=== PATIENT | female | born 1965 | race Caucasian/White ===

== ENCOUNTER 2021-02-09 11:21 | Outpatient (CLI) | payer MEDICARE, MEDICAID, SELFPAY ==
[2021-02-09 18:53] LABS: Basophils Percent Auto 0.5 % (0.2-1.2); Eosinophils Absolute Auto 0.1 K/mm3 (0-0.3); Eosinophils Percent Auto 1.9 % (0-4.4); Hematocrit 43.1 % (37.0-47.0); Hemoglobin 14.2 g/dL (12.0-15.0); Immature Granulocyte Absolute 0.01 K/mm3 (0.00-0.031); Immature Granulocyte Percent A 0.2 % (0-0.5); Lymphocytes Absolute Auto 1.39 K/mm3 (0.9-3.2); Lymphocytes Percent Auto 32.8 % (18.3-44.2); Mean Corpuscular HGB Conc 32.9 g/dl (32-36); Mean Corpuscular Hemoglobin 29.7 pg (26-34); Mean Corpuscular Volume 90.2 fl (80-100); Mean Platelet Volume 9.8 fl (7.4-10.4); Monocytes Absolute Auto 0.3 K/mm3 (0.1-0.6); Monocytes Percent Auto 7.5 % (2.6-8.5); Neutrophils Absolute Auto 2.4 K/mm3 (1.3-6.7); Neutrophils Percent Auto 57.1 % (45.5-73.1); Platelet Count Result 273 k/mm3 (150-375); Red Blood Count 4.78 M/mm3 (4.2-5.4); Red Cell Distribution Width 12.4 % (11.5-14.5); White Blood Count 4.2 K/mm3 (4.5-10.0)
[2021-02-09 18:59] LABS: Alanine Aminotransferase 28 U/L (4-35); Albumin Level 4.6 g/dL (3.5-5.1); Alkaline Phosphatase 79 U/L (38-126); Anion Gap 9 mmol/L (8-16); Aspartate Amino Transferase 33 U/L (14-36); Bilirubin,Total 0.4 mg/dL (0.2-1.3); Blood Urea Nitrogen 19 mg/dL (7-17); CRP 3.2 mg/dL (<1.0); Calcium 9.8 mg/dL (8.4-10.2); Carbon Dioxide 23 mmol/L (22-30); Chloride 106 mmol/L (98-107); Cholesterol 213 mg/dL (0-200); Estimated Glomerular Filt Rate 57; Glucose 105 mg/dL (65-105); HDL Direct 47 mg/dL; Potassium 4.5 mmol/L (3.4-5.0); Sodium 138 mmol/L (137-145); Triglycerides 201 mg/dL (<150)
[2021-02-09 19:00] LABS: Add Urine Microscopic? YES; Appearance Urine Cloudy (Clear); Bacteria Urine Trace /hpf; Bilirubin Urine Negative (Negative); Blood Urine 1+ (Negative); Calcium Oxalate Crystals Urine Present /hpf; Color Urine Yellow (Yellow); Glucose Urine UA Negative (Negative); Ketones Urine Negative (Negative); Leukocyte Esterase Ur Negative LEU/UL (Negative); Mucus Urine Rare /lpf; Nitrate Urine Negative (Negative); Protein Urine 1+ mg/dL (Negative); Specific Grav Ur 1.023 (1.001-1.035); Squamous Epithelial Cell Urine Many /hpf (Few); Urobilinogen Urine Negative mg/dL (<2.0); WBC Urine 0-3 /hpf
[2021-02-09 19:07] LABS: LDL Cholesterol Direct 69 mg/dL
[2021-02-09 19:17] LABS: Vitamin D 25 Hydroxy 30.9 ng/mL
[2021-02-09 20:02] LABS: Folic Acid 9.8 ng/mL (2.76->20)
[2021-02-14 11:21] LABS: T3 Reverse 19 ng/dL (8-25)
[2021-02-16 18:50] LABS: Triiodothyronine T3 Free 2.7 pg/mL (2.3-4.2)
[2021-02-16 22:33] LABS: C-Peptide 3.16 ng/mL (0.80-3.85)
== END 2021-02-09 11:22 | disposition home or self-care (01) ==
PROVIDERS: PCP Family Medicine; Visit Provider Family Medicine
DX: F32.9 Major depressive disorder, single episode, unspecified (principal); M19.90 Unspecified osteoarthritis, unspecified site; R53.83 Other fatigue; R68.89 Other general symptoms and signs; Z13.9 Encounter for screening, unspecified; Z79.899 Other long term (current) drug therapy; Z82.62 Family history of osteoporosis; G25.81 Restless legs syndrome
CPT/HCPCS: 36415; 80053; 80061; 81001; 82306; 82607; 82746; 84439; 84443; 84481; 84482; 84681; 85025; 86140

== ENCOUNTER 2021-04-02 12:29 | Outpatient (CLI) | payer MEDICARE, MEDICAID, SELFPAY ==
--- NOTE | ~2021-04-02 | CT_ITS ---
EXAMINATION: CT abdomen pelvis wo/w con DATE: 04/02/2021 13:31 INDICATION: Gross hematuria TECHNIQUE: Computed tomography (CT) of the abdomen and pelvis was performed without and subsequently with 130 cc Omnipaque 350 intravenous contrast. Automated exposure control and iterative reconstructi on technique were employed. Exam dose: 3163.45 mGy-cm total exam DLP. COMPARISON: 02/24/2016 CT abdomen pelvis FINDINGS: The lung bases are clear of infiltrate or consolidation. Normal heart size. No pericardial or pleural effusion. The liver, spleen, gallbladder, bile ducts, pancreas, pancreatic duct and adrenal glands are unremark able. At least several calculi noted in the lower pole of each kidney, measuring up to 6 mm approximate max imal size on the right, 5 mm on the left. No ureteral calculus or hydroureteronephrosis. Approximately 4.5 mm upper pole left renal cyst. 9 mm hypoattenuating lesion at the anteromedial mid left kidney. 1.4 cm hypoattenuating lesion in the lower pole of the left kidney. No filling defect or focal thickening of the wall of the urinary bladder is evident. Status post hysterectomy. Normal caliber of the abdominal aorta. No intraperitoneal or retroperitoneal or pelvic mass lesion or adenopathy or ascites. Normal appendix. No bowel obstruction, bowel wall thickening, pneumatosis or intraperitoneal free air . Small fat-containing umbilical hernia. Bilateral L5 pars interarticularis defects with grade 1 anterolisthesis at L5-S1. No suspicious osteolytic or osteoblastic lesions are noted. IMPRESSION: Bilateral nonobstructive nephrolithiasis Indeterminate 4.5 and 9 mm hypoattenuation lesions of the left kidney. Considering the history of timi ss hematuria, consider MRI of the kidneys Status post hysterectomy Bilateral L5 pars interarticularis defects with associated grade 1 anterolisthesis at L5-S1 Reviewed, dictated and finalized at Location A. Reviewed, dictated and finalized at location B. IMPRESSION: Bilateral nonobstructive nephrolithiasis Indeterminate 4.5 and 9 mm hypoattenuation lesions of the left kidney. Consider ing the history of gross hematuria, consider MRI of the kidneys Status post hysterectomy Bilateral L5 pars interarticularis defects with associated grade 1 anterolisthe sis at L5-S1
--- NOTE | ~2021-04-02 | XR_ITS ---
EXAMINATION: XR abdomen/kub 1V INDICATION: Gross hematuria TECHNIQUE: Supine views of the abdomen were obtained on 2 radiographs. COMPARISON: CT from today FINDINGS: There is a 6 mm stone in the lower pole of the right kidney. A 5 mm stone is present in the lower pole of the left kidney. No stones are identified along the expected course of the ureters or within the bladder. There are phleboliths in the pelvis. The bowel gas pattern is normal. Changes of hernia repair are noted in the right upper quadrant. There is mild osteoarthritis of the hips. IMPRESSION: 1. Bilateral nephrolithiasis. Reviewed, dictated and finalized at location A.
== END 2021-04-02 12:30 | disposition home or self-care (01) ==
PROVIDERS: PCP Family Medicine; Visit Provider Nurse Practitioner Family
DX: R31.0 Gross hematuria (principal); N20.0 Calculus of kidney
CPT/HCPCS: 74018; 74178; Q9967

== ENCOUNTER 2021-05-06 15:00 | Outpatient (CLI) | payer MEDICARE, MEDICAID, SELFPAY ==
--- NOTE | ~2021-05-06 | XR_ITS ---
XR shoulder LT min 2V 05/06/2021 15:48 INDICATION: Left shoulder pain PROCEDURE: 4 views left shoulder COMPARISON: No prior studies for comparison. FINDINGS: Fracture, dislocation or subluxation is not identified. The soft tissues appear within norm al limits. No foreign bodies are identified. IMPRESSION: 1: NO ACUTE BONE OR JOINT ABNORMALITY IDENTIFIED. Reviewed, dictated and finalized at location B.
--- NOTE | ~2021-05-06 | XR_ITS ---
EXAMINATION: XR lumbar spine 6V w bending DATE: 05/06/2021 15:48 INDICATION: Low back pain. TECHNIQUE: 7 views of lumbar spine including flexion and extension views were obtained. COMPARISON: CT abdomen and pelvis 04/02/2021 FINDINGS: There is 7 degrees levocurvature of lumbar spine. There are chronic bilateral L5 pars defec ts. There is 5 mm anterolisthesis of L5 on S1. Vertebral body heights are normal. Intervertebral disc heights are normal. There are endplate osteophytes at most levels. There is no abnormal motion with flexion or extension. There is multilevel mild facet joint osteoarthritis. IMPRESSION: 1. Chronic bilateral L5 pars defects with grade 1 anterolisthesis of L5 on S1. 2. Mild lumbar spondylosis. Reviewed, dictated and finalized at location A.
--- NOTE | ~2021-05-06 | XR_ITS ---
EXAMINATION: XR hip RT min 3V w AP pelvis DATE: 05/06/2021 15:47 INDICATION: Right hip pain. TECHNIQUE: An anteroposterior view of the pelvis and 2 views of right hip were obtained. COMPARISON: Right hip radiographs 01/16/2019 CT abdomen and pelvis 04/02/2021 FINDINGS: Bone alignment is normal. No fracture. There is mild osteoarthritis of the hips. IMPRESSION: 1. Mild osteoarthritis of the hips. Reviewed, dictated and finalized at location A.
--- NOTE | ~2021-05-06 | XR_ITS ---
EXAMINATION: XR_CERV2-3V_CR DATE: 05/06/2021 15:48 INDICATION: Neck pain. Fall. TECHNIQUE: 4 views of cervical spine were obtained. COMPARISON: CT cervical spine 01/16/2019 FINDINGS: There is 4 degrees levocurvature of cervical spine. Body heights are normal. There is mildl y decreased disc height at C4-C5, C5-C6, and C6-C7. There is multilevel facet joint osteoarthritis, s evere on the left at C3-C4. No central canal stenosis or prevertebral soft tissue swelling. IMPRESSION: 1. Mild cervical spondylosis. Reviewed, dictated and finalized at location A.
== END 2021-05-06 15:01 | disposition home or self-care (01) ==
LOC: ANHBWCIMG 15:03
PROVIDERS: PCP Family Medicine; Visit Provider Family Medicine
DX: M25.512 Pain in left shoulder (principal); G40.909 Epilepsy, unspecified, not intractable, without status epilepticus; M47.896 Other spondylosis, lumbar region; M16.11 Unilateral primary osteoarthritis, right hip; M47.892 Other spondylosis, cervical region
CPT/HCPCS: 72040; 72114; 73030; 73502

== ENCOUNTER 2021-05-09 10:19 | Outpatient (CLI) | payer MEDICARE, MEDICAID, SELFPAY ==
--- NOTE | ~2021-05-09 | XR_ITS ---
XR abdomen/kub 1V 05/09/2021 10:56 Indication: Bilateral kidney stones Procedure: KUB Comparison: 04/02/2021 Findings: There are small bilateral renal stones. There are pelvic phleboliths. No acute osseous abno rmality. There are changes of ventral abdominal wall hernia repair. No acute osseous abnormality. Impression: 1: Bilateral nephrolithiasis. Reviewed, dictated and finalized at location A. Impression: 1: Bilateral nephrolithiasis.
--- NOTE | ~2021-05-09 | MR_ITS ---
EXAMINATION: MR abdomen wo/w con DATE: 05/09/2021 12:01 INDICATION: Left kidney mass. TECHNIQUE: Magnetic resonance imaging (MRI) of the abdomen was performed without and with 20 mL Multi Cassandra intravenous contrast. Sequences included coronal T2-weighted FS FSE, coronal and axial FIESTA F S, coronal LAVA-flex, axial LAVA, axial T2-weighted FSE, axial T1-weighted dual-echo FSPGR, axial STI R FSE, and axial DWI. Postcontrast sequences included coronal LAVA-flex and a time course of axial LA VA. COMPARISON: CT abdomen and pelvis 04/02/2021 FINDINGS: There is diffuse hepatic steatosis. The gallbladder is normal in size and contains gallstones. Incomp lete pancreas divisum is noted. There is a 5 mm cyst in the spleen. The adrenal glands and right kidn ey are normal. There are cysts in left kidney measuring up to 17 mm. There are no dilated loops of gordo wel. There are no pathologically enlarged lymph nodes. There is no free intraperitoneal fluid. IMPRESSION: 1. Benign cysts in left kidney measuring up to 17 mm. Reviewed, dictated and finalized at location A.
[2021-05-09 11:27] LABS: Estimated Glomerular Filt Rate 57
== END 2021-05-09 10:20 | disposition home or self-care (01) ==
LOC: ANHIMG 10:33
PROVIDERS: PCP Family Medicine; Visit Provider Urology
DX: N28.89 Other specified disorders of kidney and ureter (principal); N20.0 Calculus of kidney; N28.1 Cyst of kidney, acquired
CPT/HCPCS: 74018; 74183; A9577

== ENCOUNTER 2021-07-05 14:54 | Outpatient (CLI) | payer MEDICARE, MEDICAID, SELFPAY ==
--- NOTE | ~2021-07-05 | XR_ITS ---
XR abdomen/kub 1V DATE: 07/05/2021 15:18 INDICATION: Bilateral kidney stones TECHNIQUE: AP projection, 2 views COMPARISON: 05/09/[address] abdomen pelvis without and with IV contrast material FINDINGS: Bilateral lower pole calcified renal calculi are noted, not significantly changed since 03/14. No ureteral calcified calculus is evident. Stable occasional pelvic calcified phlebolith. The psoas shadows are intact. No visceromegaly. No evidence of bowel obstruction. Status post ventral abdominal wall surgical repair. IMPRESSION: Bilateral calcified nephrolithiasis involving lower poles of each kidney Reviewed, dictated and finalized at Location A. Reviewed, dictated and finalized at location A. IMPRESSION: Bilateral calcified nephrolithiasis involving lower poles of each k idney
== END 2021-07-05 14:55 | disposition home or self-care (01) ==
LOC: ANHIMG 14:58
PROVIDERS: PCP Family Medicine; Visit Provider Urology
DX: N20.0 Calculus of kidney (principal)
CPT/HCPCS: 74018

== ENCOUNTER 2021-09-28 12:47 | Outpatient (CLI) | payer MEDICARE, MEDICAID, SELFPAY ==
--- NOTE | 2021-09-28 13:15 | ECG_ITS ---
Measurements Intervals [place] Rate: 92 P: 31 DC: 184 QRS: 18 QRSD: 92 T: 53 QT: 335 QTc: 416 Interpretive Statements SINUS RHYTHM DELAYED PRECORDIAL R/S TRANSITION BASELINE ARTIFACT- I, II, III, AVR, AVL, AVF BORDERLINE ECG Electronically Signed On 09-28-2021 13:07:09 SPOOL CARRIER by Zander Navarro D.O.
== END 2021-09-28 12:48 | disposition home or self-care (01) ==
LOC: ANHSURGERY 12:55
PROVIDERS: PCP Physician Assistant; Visit Provider Urology
DX: F17.200 Nicotine dependence, unspecified, uncomplicated (principal); Z01.818 Encounter for other preprocedural examination; R94.31 Abnormal electrocardiogram [ECG] [EKG]
CPT/HCPCS: 93005

== ENCOUNTER 2021-10-01 01:14 | Day surgery (SDC) | payer MEDICARE, MEDICAID, SELFPAY ==
[2021-09-28 09:58] VITALS: BMI 48.8
--- NOTE | 2021-09-28 11:01 | PC.NURSE ---
Report to the Outpatient Waiting Room, entrance under the green pavilion located off [facility], at time _1000__on date _10/01/21_ OR Time: _1200____. WE WILL CALL YOU ON MONDAY AFTERNOON IF YOUR SURGERY TIME IN CHANGED!!!!!!!!!!!!!!!!! - You and your visitor will be asked a series of questions to screen for COVID 19 for your protection. - A mask is required within the hospital. - Only one visitor is allowed at this time. Patient visitors will be guided where to wait when not with patient. Preoperative COVID Testing Requirements: No COVID Test needed if: (proof is required; if not received patient will have Rapid Test prior to entry) - Patient has received COVID Vaccine at least 14 days prior to procedure date or - Patient has positive COVID test result within last 90 days of surgery date. COVID Test needed if above criteria is not met If not COVID vaccinated a COVID test must be conducted within 72 hours of surgery and patient is asked to isolate self from time of testing until procedure. You will go to the [employer] [facility] for your COVID testing. The [employer] [facility] is located at the corner of [address] [facility]. You will only be called if COVID results are positive and your surgeon may reschedule your elective surgery date. Patients may have clear liquids (water, carbonated beverages, clear teas, apple juice) until 3 hours prior to surgery with a maximum of 20 ounces. STOP CLEAR LIQUIDS AT 0900 ON THE MORNING OF YOUR SURGERY - No food from midnight until time of surgery - Infants may have breast milk until 4 hours before surgery, formula 6 hours prior to surgery. - Children will be allowed to drink immediately following surgery. If applicable, please bring a bottle or sippy cup to assist with drinking. Juice, water, soda, and popsicles are readily available. For infants on formula, please bring formula the day of surgery. Pacifiers are allowed. Take the following medications with a SIP of water the morning of surgery: LIOTHYROXINE, ALBUTEROL INHALER, HYDROCODONE, WIXELA INHALER, CITALOPRAM, TOPIRAMATE, LAMICTAL Medications to discontinue per physician VITAMIN B12 AND VITAMIN D3 Date to take last dose_09/28/21 Please no make-up, nail amharic, hairspray, perfume, deodorant, or body powder the day of surgery. No jewelry (including any body piercings) or valuables the day of surgery, leave them at home. Please take a shower or bath the night before, or the morning of, surgery with an antibacterial soap. Wear comfortable, loose fitting clothing. Children are encouraged to wear pajamas. - Jewelry must be removed prior to entering the operating room. Rings and piercings that are not removed may be cut off. - The hospital will not accept responsibility for valuables. - Please leave all valuables, including medications, at home the day of surgery. If you are going home after surgery, a licensed personal driver must drive you home. - NO public transportation without another adult. - We recommend that an adult stay with you for 24 hours following discharge. - We also recommend that you do not drive, make important decision, drink alcoholic beverages, or take any drugs that were not prescribed by your health care provider for at least 24 hours after your discharge time. For Pediatric surgeries, we recommend two adults accompany the child home (only one inside the building at this time). Follow any additional instructions given to you from your surgeon. Telephone instructions given to __CATHRYN and asked if any additional questions and then verbalized understanding. Patient advised to call surgeon office or pre surgery nurse liaison [phone] if any additional questions.
--- NOTE | ~2021-10-01 | XR_ITS ---
EXAMINATION: XR retrograde pyelogram LT EXAM DATE: 10/01/2021 11:14 INDICATION: Left-sided retrograde pyelogram. TECHNIQUE: Fluoroscopy used during XR retrograde pyelogram LT performed by Dr. Manav Quiroga MD , urologist. The radiologist Juan Moreno M.D. dictating this report of the image(s) available was no t present for the procedure. Total fluoroscopic time of 43 seconds. The DAP for this procedure was 2.0 mGym2. A total of 87 images sent to PACS from the exam. Cine run(s) available for review. FINDINGS: There is mild left hydronephrosis. No filling defects or strictures identified. Correlate with procedure note. IMPRESSION: Mild left hydronephrosis. Reviewed, dictated and finalized at location B. HICS COORDINATOR IMPRESSION: Mild left hydronephrosis.
--- NOTE | 2021-10-01 07:20 | P.HP_ITS ---
H&P: HPI History of Present Illness Date/Time: 10/01/21 07:20 Left distal ureteral stone Chief Complaint: Left ureteral stone Review of Systems Review of Systems: All systems reviewed & are unremarkable except as noted in HPI and below [facility] Past Medical History Medical History Anxiety Arthritis Asthma Brain aneurysm Cancer H/O migraine Seizure Ventral hernia Surgical History Surgical History H/O lumpectomy H/O: hysterectomy Family History Family History Father Family history of lung cancer Family history of primary malignant neoplasm of liver Heart problem Asthma Mother Family history of sleep apnea Family history of type 2 diabetes mellitus Hypertension Heart problem Depression with anxiety Sibling Diabetes mellitus Hypertension Depression with anxiety Heart problem Thyroid disorder Cerebrovascular accident Kidney failure Social History Social History Smoking packs per day: 2 Smoking cigarettes per day: 40.0 Years smoked: 30 Smoking pack-years: 60.00 Smoking status: Current every day smoker Tobacco type: cigarettes and e-cigarettes/vaping Second hand tobacco smoke exposure: Yes Alcohol intake: never Substance use: never Living arrangements: with family Additional living arrangements comments: LAURITA [phone] Spiritual care concerns: No Meds Home Medications and Allergies Home Medications Medication Instructions Recorded Confirmed Type albuterol sulfate 90 mcg/actuation 2 inh INHALATION Q4H PRN g 02/09/21 09/28/21 History aerosol inhaler cholecalciferol (vitamin D3) 50 50 mcg PO DAILY 02/09/21 09/28/21 History mcg (2,000 unit) capsule citalopram 20 mg tablet 20 mg PO DAILY 02/09/21 09/28/21 History cyanocobalamin (vitamin B-12) 1,000 mcg PO DAILY 02/09/21 09/28/21 History 1,000 mcg capsule topiramate 200 mg tablet 200 mg PO BID 02/09/21 09/28/21 History liothyronine 5 mcg tablet 5 mcg PO DAILY #60 tablet 06/04/21 09/28/21 Rx tramadol 50 mg tablet 50 mg PO Q8H PRN #90 tablet 09/21/21 09/28/21 Rx fluticasone propion-salmeterol 1 inh INHALATION BID 09/28/21 09/28/21 History [Wixela Inhub] hydrocodone-acetaminophen 1 - 2 tablet PO Q4-6H PRN 09/28/21 09/28/21 History lamotrigine 100 mg PO DAILY 09/28/21 09/28/21 History oxybutynin chloride 10 mg PO HS 09/28/21 09/28/21 History trazodone 50 mg PO HS 09/28/21 09/28/21 History Allergies Allergy/AdvReac Type Severity Reaction Status Date / Time codeine Allergy Unknown Hives Verified 09/28/21 10:38 Sulfa (Sulfonamide Allergy Unknown Hives Verified 09/28/21 10:38 Antibiotics) Exam Narrative: No acute distress Normal breathing Alert oriented x3 Assessment and Plan Assessment and plan (1) Left ureteral stone: Code(s): N20.1 - Calculus of ureter Status: Acute Assessment and Plan: Left ureteroscopy, stone extraction, stent placement. May require holmium laser ablation
--- NOTE | 2021-10-01 08:21 | WPDHPUPDATE1 ---
History and Physical Update Update Date/Time: 10/01/21 08:21 History and Physical has been reviewed, including an updated exam of the patient. There are NO changes in the patient's condition. Risks, benefits, and alternatives have been discussed and questions answered. Patient agrees to proceed with procedure.
[2021-10-01 09:50] VITALS: BP 143/91; PULSE 87; RESP 16; TEMP 36.3; O2SAT 98
[2021-10-01] MEDS: LACTATED RINGERS 1,000 ML 30 ML IV CONT (10:14)
--- NOTE | 2021-10-01 10:17 | WPDANESEPPF ---
Anes - Initial Pre Proc Eval Procedure: Operation Date: 10/01/21 12:45 Proposed Procedures p Cystoscopy, Left Ureteroscopy, Left Retrograde Pyelogram, Left Stent Placement - Manav Quiroga MD Date/Time: 10/01/21 10:17 Surgeon: Manav Quiroga MD Pre Op Diagnosis: Left Ureteral Stone Patient Data Age: 56 Gender: F Height: 1.6 m Weight: 124 kg Last Vital Signs Temp 36.3 C L 10/01/21 09:50 Pulse 87 10/01/21 09:50 Resp 16 10/01/21 09:50 BP 143/91 H 10/01/21 09:50 Pulse Ox 98 10/01/21 09:50 Allergies Allergy/AdvReac Type Severity Reaction Status Date / Time Sulfa (Sulfonamide Allergy Severe Swelling Verified 10/01/21 10:02 Antibiotics) codeine Allergy Intermediate Hives Verified 10/01/21 10:02 Home Medications Medication Instructions Recorded Confirmed Type albuterol sulfate 90 mcg/actuation 2 inh INHALATION Q4H PRN g 02/09/21 10/01/21 History aerosol inhaler cholecalciferol (vitamin D3) 50 50 mcg PO DAILY 02/09/21 10/01/21 History mcg (2,000 unit) capsule citalopram 20 mg tablet 20 mg PO DAILY 02/09/21 10/01/21 History cyanocobalamin (vitamin B-12) 1,000 mcg PO DAILY 02/09/21 10/01/21 History 1,000 mcg capsule topiramate 200 mg tablet 200 mg PO BID 02/09/21 10/01/21 History liothyronine 5 mcg tablet 5 mcg PO DAILY #60 tablet 06/04/21 10/01/21 Rx tramadol 50 mg tablet 50 mg PO Q8H PRN #90 tablet 09/21/21 10/01/21 Rx fluticasone propion-salmeterol 1 inh INHALATION BID 09/28/21 10/01/21 History [Wixela Inhub] hydrocodone-acetaminophen 1 - 2 tablet PO Q4-6H PRN 09/28/21 10/01/21 History lamotrigine 100 mg PO DAILY 09/28/21 10/01/21 History oxybutynin chloride 10 mg PO HS 09/28/21 10/01/21 History trazodone 50 mg PO HS 09/28/21 10/01/21 History Patient hx anesthesia problems: none Family hx anesthesia problems: none Results Review: All pre-operative results and documents have been reviewed as part of the pre-operative evaluation. [facility] Past Medical History Medical History (Updated 10/01/21 @ 08:21 by Manav Quiroga MD) Anxiety Arthritis Asthma Brain aneurysm Cancer H/O migraine Seizure Ventral hernia Surgical History Surgical History (Updated 10/01/21 @ 10:22 by Xander Mcdonald MD) H/O lumpectomy H/O: hysterectomy Hx of craniotomy Family History Family History Father Family history of lung cancer Family history of primary malignant neoplasm of liver Heart problem Asthma Mother Family history of sleep apnea Family history of type 2 diabetes mellitus Hypertension Heart problem Depression with anxiety Sibling Diabetes mellitus Hypertension Depression with anxiety Heart problem Thyroid disorder Cerebrovascular accident Kidney failure Social History Social History Smoking packs per day: 2 Smoking cigarettes per day: 40.0 Years smoked: 30 Smoking pack-years: 60.00 Smoking status: Current every day smoker Tobacco type: cigarettes and e-cigarettes/vaping Second hand tobacco smoke exposure: Yes Alcohol intake: never Substance use: never Living arrangements: with family Additional living arrangements comments: LAURITA IRBYZKBZ-[phone] Spiritual care concerns: No Anes - Eval Final PreProcedure Day of Procedure 10/01/21 10:17 Patient weight: morbidly obese Heart: regular rate and rhythm Lungs: clear to auscultation Airway: Mallampati scale class II Neurological: alert and oriented Last oral intake: >/= 8 hours ASA classification: IV Emergent: no Anesthetic plan: proceed Anesthesia type and monitoring: general LMA and standard monitoring Results Review: All pre-operative results and documents have been reviewed as part of the pre-operative evaluation. Informed Consent: The patient's anesthetic plan and its attendant risks and benefits were discussed with the patient/family/POADeandre Rivera
[2021-10-01] MEDS: ceFAZolin 3 GM/D5W 100 ML 100 ML IVPB (10:42)
--- NOTE | 2021-10-01 11:15 | W.PM.PROC2 ---
Procedure Note - Detailed Date of Procedure 10/01/21 Pre-op Diagnosis Left Ureteral Stone Post-op Diagnosis same Procedure Performed Cystoscopy, left retrograde pyelogram, left ureteroscopy-diagnostic Surgeon Manav Quiroga MD Anesthesia general Indications This is a woman who had a CT scan 1 week ago demonstrating a left ureteral stone. She states she did not pass the stone. She states she still has discomfort from the stone. She is here today for ureteroscopy. She understands risks of bleeding, infection, inability remove the stone, non presence of stone, damage to the ureter or urinary tract. She agrees to proceed Findings Was able to get the ureteral scope all the way up to the UPJ. No stone seen Description of Procedure She has correctly identified. Informed consent obtained. She from the operating room. She was given general anesthesia. She was placed in dorsal thigh position. She was prepped and draped in a sterile fashion. Time-out performed. I performed cystoscopy. Her bladder is examined normal. I did a retrograde pyelogram on the left. There was no significant hydronephrosis. I do not see a filling defect consistent with stone. I placed a guidewire in the kidney. I did rigid ureteroscopy. The ureter was very pliable. I was able to get all the way up to the UPJ with no trauma to the ureter. No stone was seen. I reperformed a retrograde pyelogram. There is no extravasation the ureter. It drained promptly. Due to the fact that there was minimal manipulation of the ureter and there was good drainage I elected to not leave a stent. Her bladder was drained. She was awakened and transferred to PACU in stable condition. Estimated Blood Loss 1 Drains No Packing No Pathology none sent Complications No immediate complications Condition stable Disposition PACU
[2021-10-01 11:16] VITALS: BP 111/63; PULSE 67; RESP 20; TEMP 36.4; O2SAT 100
[2021-10-01 11:30] VITALS: BP 110/64; PULSE 61; RESP 16; O2SAT 100
--- NOTE | 2021-10-01 11:35 | SUR.PHASEI ---
Simple mask removed at 1134.
[2021-10-01 11:45] VITALS: BP 111/73; PULSE 61; RESP 20; O2SAT 96
[2021-10-01 11:51] VITALS: BP 122/86; PULSE 60; RESP 16
--- NOTE | 2021-10-01 12:45 | SUR.PHASEII ---
DR. VALDES CAME TO SPEAK TO PATIENT. CHESTNUT CALLED FOR RIDE. WILL BE DELAYED. PATIENT DRESSED, WAITING FOR RIDE. NAD.
--- NOTE | 2021-10-01 13:51 | SUR.PHASEII ---
PATIENT STILL WAITING FOR RIDE. NAD.
--- NOTE | 2021-10-01 14:07 | SUR.PHASEII ---
AWAITING RIDE. COMPA CALLED AGAIN; AWARE TO CHEMICAL PLANT OPERATOR SUPERVISOR PT. PT IN NAD.
== END 2021-10-01 14:40 | disposition home or self-care (01) ==
PROVIDERS: PCP Physician Assistant; Visit Provider Urology
PROC: 0TBB8ZX Excision of Bladder, Via Natural or Artificial Opening Endoscopic, Diagnostic (ICD-10-PCS; CPT 52204; principal; 2021-10-01 12:45)
DX: N20.1 Calculus of ureter (principal); Z79.51 Long term (current) use of inhaled steroids; F41.9 Anxiety disorder, unspecified; M19.90 Unspecified osteoarthritis, unspecified site; F17.210 Nicotine dependence, cigarettes, uncomplicated; F17.290 Nicotine dependence, other tobacco product, uncomplicated; E66.01 Morbid (severe) obesity due to excess calories; Z68.42 Body mass index [BMI] 45.0-49.9, adult
CPT/HCPCS: 52351; 74420; 93005; A9270; C1758; J0690; J2250; J2405; J2704; J3010; J7120; Q9966

== ENCOUNTER 2021-10-15 13:49 | Outpatient (CLI) | payer MEDICARE, MEDICAID, SELFPAY ==
--- NOTE | ~2021-10-15 | XR_ITS ---
EXAMINATION: XR abdomen/kub 1V DATE: 10/15/2021 14:14 INDICATION: Bilateral kidney stones. TECHNIQUE: A supine view of the abdomen on 2 radiographs was obtained. COMPARISON: CT abdomen and pelvis 04/02/2021 FINDINGS: There are no dilated loops of bowel. There are surgical clips from ventral hernia repair. T here are phleboliths in the pelvis. There are stones in each kidney measuring up to 5 mm on the right . IMPRESSION: 1. Bilateral kidney stones. Reviewed, dictated and finalized at location A. [place] BAKERY MANAGER IMPRESSION: 1. Bilateral kidney stones.
== END 2021-10-15 13:50 | disposition home or self-care (01) ==
LOC: ANHIMG 13:55
PROVIDERS: PCP Physician Assistant; Visit Provider Urology
DX: N20.0 Calculus of kidney (principal)
CPT/HCPCS: 74018

== ENCOUNTER 2021-11-17 13:04 | Outpatient (CLI) | payer MEDICARE, MEDICAID, SELFPAY ==
[2021-11-17 14:02] LABS: Add Urine Microscopic? YES; Appearance Urine Cloudy (Clear); Bacteria Urine Trace /hpf; Bilirubin Urine Negative (Negative); Blood Urine 1+ (Negative); Color Urine Yellow (Yellow); Glucose Urine UA Negative (Negative); Ketones Urine Negative (Negative); Leukocyte Esterase Ur Negative LEU/UL (Negative); Mucus Urine Rare /lpf; Nitrate Urine Negative (Negative); Protein Urine Negative (Negative); RBC Urine 0-2 /hpf (0-2); Specific Grav Ur 1.008 (1.001-1.035); Squamous Epithelial Cell Urine Many /hpf (Few); Urobilinogen Urine Negative mg/dL (<2.0); WBC Urine 0-3 /hpf
[2021-11-17 14:10] LABS: Prothrombin Time 13.1 Seconds (11.1-14.7)
[2021-11-17 14:11] LABS: Partial Thromboplastin Time 29.5 SECONDS (22.3-36.8)
== END 2021-11-17 13:05 | disposition home or self-care (01) ==
LOC: ANHSURGERY 13:08
PROVIDERS: PCP Physician Assistant; Visit Provider Urology
DX: N20.0 Calculus of kidney (principal); Z01.818 Encounter for other preprocedural examination
CPT/HCPCS: 36415; 81001; 85610; 85730

== ENCOUNTER 2021-11-19 02:57 | Day surgery (SDC) | payer MEDICARE, MEDICAID, SELFPAY ==
[2021-11-17 09:15] VITALS: BMI 47.1
--- NOTE | 2021-11-17 09:35 | PC.NURSE ---
Report to the Outpatient Waiting Room, entrance under the green pavilion located off [facility], at time 7:15 on date 11/19/21. OR Time: 9:15. - You will be asked a series of questions to screen for COVID 19 for your protection. - A mask is required within the hospital. - No visitors are allowed at this time. Preoperative COVID Testing Requirements: No COVID Test needed if: (proof is required; if not received patient will have Rapid Test prior to entry) - Patient has received COVID Vaccine at least 14 days prior to procedure date or - Patient has positive COVID test result within last 90 days of surgery date. COVID Test needed if above criteria is not met Patients may have clear liquids (water, carbonated beverages, clear teas, apple juice) until 3 hours prior to surgery (6:15) with a maximum of 20 ounces. - No food from midnight until time of surgery Take the following medications with a SIP of water the morning of surgery: INHALERS, CITALOPRAM, LAMOTRIGINE, LIOTHYRONINE, TOPIRAMATE, TRAMADOL (IF NEEDED) Medications to discontinue per physician: VITAMINS/SUPPLEMENTS Date to take last dose: 11/16/21 Please no make-up, nail bermudian, hairspray, perfume, deodorant, or body powder the day of surgery. No jewelry (including any body piercings) or valuables the day of surgery, leave them at home. Please take a shower or bath the night before, or the morning of, surgery with an antibacterial soap. Wear comfortable, loose fitting clothing. - Jewelry must be removed prior to entering the operating room. Rings and piercings that are not removed may be cut off. - The hospital will not accept responsibility for valuables. - Please leave all valuables, including medications, at home the day of surgery. If you are going home after surgery, a licensed tilt tray driver must drive you home. - NO public transportation without another adult. - We recommend that an adult stay with you for 24 hours following discharge. - We also recommend that you do not drive, make important decision, drink alcoholic beverages, or take any drugs that were not prescribed by your health care provider for at least 24 hours after your discharge time. Follow any additional instructions given to you from your surgeon. Telephone instructions given to GIANNA SALEH and asked if any additional questions and then verbalized understanding. Patient advised to call surgeon office or pre surgery nurse liaison [phone] if any additional questions.
--- NOTE | 2021-11-18 07:11 | PM.HPGS ---
History of Present Illness History of Present Illness Consent: Risks, benefits, and alternatives have been discussed and questions answered. Patient agrees to proceed with procedure. Chief complaint: kidney stones Narrative: Kasey Boateng is a 56 year old female Who recently presented with an obstructing ureteral stone. She underwent ureteroscopy, which time she had spontaneously passed a stone. She has known residual bilateral renal calculi and now presents for right ESWL. She is aware risk of this procedure including, but not limited to, persistent stone, perinephric hematoma, ureteral injury, obstructing ureteral stone resulting from residual fragments. Review of Systems Cardiovascular: Cardiovascular: Denies chest pain, Denies lightheadedness, Denies palpitations and Denies dyspnea Respiratory: Respiratory: Denies dyspnea Gastrointestinal: Gastrointestinal: Denies diarrhea, Denies nausea and Denies vomiting Genitourinary: Genitourinary: Denies hematuria and Denies dysuria Endocrine: Endocrine: Denies palpitations PMFSH Past Medical History Medical History Anxiety Arthritis Asthma Brain aneurysm Cancer H/O migraine Seizure Ventral hernia Surgical History Surgical History H/O lumpectomy H/O: hysterectomy Hx of craniotomy Family History Family History Father Family history of lung cancer Family history of primary malignant neoplasm of liver Heart problem Asthma Mother Family history of sleep apnea Family history of type 2 diabetes mellitus Hypertension Heart problem Depression with anxiety Sibling Diabetes mellitus Hypertension Depression with anxiety Heart problem Thyroid disorder Cerebrovascular accident Kidney failure Social History Social History Smoking packs per day: 2 Smoking cigarettes per day: 40.0 Years smoked: 35 Smoking pack-years: 70.00 Smoking status: Former smoker Tobacco type: cigarettes and e-cigarettes/vaping Second hand tobacco smoke exposure: Yes Smoking end date: 11/13/13 Additional smoking assessment comments: QUIT SMOKING CIGARETTES 2013, VAPING NOW Alcohol intake: never Substance use: never Substance use type: does not use Additional living arrangements comments: PT LIVES AT [facility] concerns: No Meds Home Medications and Allergies Home Medications Medication Instructions Recorded Confirmed Type albuterol sulfate 90 mcg/actuation 2 inh INHALATION Q4H PRN g 02/09/21 11/17/21 History aerosol inhaler cholecalciferol (vitamin D3) 50 50 mcg PO DAILY 02/09/21 11/17/21 History mcg (2,000 unit) capsule citalopram 20 mg tablet 20 mg PO DAILY 02/09/21 11/17/21 History cyanocobalamin (vitamin B-12) 1,000 mcg PO DAILY 02/09/21 11/17/21 History 1,000 mcg capsule topiramate 200 mg tablet 200 mg PO BID 02/09/21 11/17/21 History liothyronine 5 mcg tablet 5 mcg PO DAILY #60 tablet 06/04/21 11/17/21 Rx tramadol 50 mg tablet 50 mg PO Q8H PRN #90 tablet 09/21/21 11/17/21 Rx fluticasone propion-salmeterol 1 inh INHALATION BID 09/28/21 11/17/21 History [Wixela Inhub] lamotrigine 100 mg PO DAILY 09/28/21 11/17/21 History oxybutynin chloride 10 mg PO HS 09/28/21 11/17/21 History trazodone 50 mg PO HS 09/28/21 11/17/21 History phenazopyridine [Pyridium] 200 mg PO TID PRN #20 tablet 10/01/21 11/17/21 Rx Allergies Allergy/AdvReac Type Severity Reaction Status Date / Time Sulfa (Sulfonamide Allergy Severe Swelling Verified 11/17/21 09:12 Antibiotics) codeine Allergy Intermediate Hives Verified 11/17/21 09:12 Exam Const: General: no acute distress Resp: Effort & Inspection: normal respiratory effort GI: Inspection: non-distended GI Palp: No abdominal tenderness and No Guard
[2021-11-19] VITALS (8 sets, daily range): BP systolic 114–150; BP diastolic 69–98; PULSE 64–85; RESP 16–20; TEMP 36.2–36.4; O2SAT 95–100
--- NOTE | ~2021-11-19 | XR_ITS ---
EXAMINATION: XR abdomen/kub 1V EXAM DATE: 11/19/2021 06:22 INDICATION: ESWL TECHNIQUE: Frontal projection(s) of the abdomen for interpretation. Comparison is made to prior exami nation from 10/15/2021. FINDINGS: Probable reidentification of bilateral nephrolithiasis. Abdominal wall mesh anchors. Nonobs tructive bowel gas pattern. There are mild bony degenerative changes. There is no organomegaly. IMPRESSION: Probable reidentification of bilateral nephrolithiasis Reviewed, dictated and finalized at location G. 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
--- NOTE | 2021-11-19 06:48 | WPDHPUPDATE1 ---
History and Physical Update Update Date/Time: 11/19/21 06:48 History and Physical has been reviewed, including an updated exam of the patient. There are NO changes in the patient's condition. Risks, benefits, and alternatives have been discussed and questions answered. Patient agrees to proceed with procedure.
--- NOTE | 2021-11-19 07:05 | WPDANESEPPF ---
Anes - Initial Pre Proc Eval Procedure: Operation Date: 11/19/21 07:30 Proposed Procedures p Right Extracorporeal Shock Wave Lithotripsy - Piyush Newton MD Date/Time: 11/19/21 07:05 Surgeon: Piyush Newton MD Pre Op Diagnosis: kidney stones Patient Data Age: 56 Gender: F Height: 1.6 m Weight: 120.7 kg Last Vital Signs Temp 36.2 C L 11/19/21 06:42 Pulse 85 11/19/21 06:42 Resp 16 11/19/21 06:42 BP 114/69 11/19/21 06:42 Pulse Ox 99 11/19/21 06:42 Allergies Allergy/AdvReac Type Severity Reaction Status Date / Time Sulfa (Sulfonamide Allergy Severe Swelling Verified 11/17/21 09:12 Antibiotics) codeine Allergy Intermediate Hives Verified 11/17/21 09:12 Home Medications Medication Instructions Recorded Confirmed Type albuterol sulfate 90 mcg/actuation 2 inh INHALATION Q4H PRN g 02/09/21 11/19/21 History aerosol inhaler cholecalciferol (vitamin D3) 50 50 mcg PO DAILY 02/09/21 11/19/21 History mcg (2,000 unit) capsule citalopram 20 mg tablet 20 mg PO DAILY 02/09/21 11/19/21 History cyanocobalamin (vitamin B-12) 1,000 mcg PO DAILY 02/09/21 11/19/21 History 1,000 mcg capsule topiramate 200 mg tablet 200 mg PO BID 02/09/21 11/19/21 History liothyronine 5 mcg tablet 5 mcg PO DAILY #60 tablet 06/04/21 11/19/21 Rx tramadol 50 mg tablet 50 mg PO Q8H PRN #90 tablet 09/21/21 11/19/21 Rx fluticasone propion-salmeterol 1 inh INHALATION BID 09/28/21 11/19/21 History [Wixela Inhub] lamotrigine 100 mg PO DAILY 09/28/21 11/19/21 History oxybutynin chloride 10 mg PO HS 09/28/21 11/19/21 History trazodone 50 mg PO HS 09/28/21 11/19/21 History phenazopyridine [Pyridium] 200 mg PO TID PRN #20 tablet 10/01/21 11/19/21 Rx Patient hx anesthesia problems: none Family hx anesthesia problems: other (unable to remember) Results Review: All pre-operative results and documents have been reviewed as part of the pre-operative evaluation. [facility] Past Medical History Medical History Anxiety Arthritis Asthma Brain aneurysm Cancer H/O migraine Seizure Ventral hernia Surgical History Surgical History H/O lumpectomy H/O: hysterectomy Hx of craniotomy Family History Family History Father Family history of lung cancer Family history of primary malignant neoplasm of liver Heart problem Asthma Mother Family history of sleep apnea Family history of type 2 diabetes mellitus Hypertension Heart problem Depression with anxiety Sibling Diabetes mellitus Hypertension Depression with anxiety Heart problem Thyroid disorder Cerebrovascular accident Kidney failure Social History Social History Smoking packs per day: 2 Smoking cigarettes per day: 40.0 Years smoked: 35 Smoking pack-years: 70.00 Smoking status: Former smoker Tobacco type: cigarettes and e-cigarettes/vaping Second hand tobacco smoke exposure: Yes Smoking end date: 11/13/13 Additional smoking assessment comments: QUIT SMOKING CIGARETTES 2013, VAPING NOW Alcohol intake: never Substance use: never Substance use type: does not use Living arrangements: alone Additional living arrangements comments: PT LIVES AT [facility] care concerns: No Anes - Eval Final PreProcedure Day of Procedure 11/19/21 07:05 Patient weight: morbidly obese Heart: regular rate and rhythm Lungs: decreased breath sounds Airway: Mallampati scale class III Neurological: alert and oriented Last oral intake: >/= 8 hours ASA classification: III Emergent: no Anesthetic plan: proceed Anesthesia type and monitoring: general LMA and standard monitoring Results Review: All pre-operative results and documents have been reviewed as part of the pre-operative evaluation. Infor
[2021-11-19] MEDS: LACTATED RINGERS 1,000 ML 30 ML IV CONT (07:18)
[2021-11-19] MEDS: ceFAZolin 3 GM/D5W 100 ML 100 ML IVPB (07:25)
--- NOTE | 2021-11-19 08:00 | W.PM.PROC2 ---
Procedure Note - Detailed Date of Procedure 11/19/21 Pre-op Diagnosis Bilateral kidney stones Post-op Diagnosis same Procedure Performed Right ESWL Surgeon Piyush Newton MD Anesthesia general Description of Procedure The patient was brought to the operative suite where she was placed in the supine position on the Dornier lithotripsy table. The focal point of the lithotripter was placed at 2 small calculi in her right kindey, each measuring 3-5mm. A total of 1250 shocks were delivered to each of these stones at a power setting of 4. There appeared to be good fragmentation of the stone. The patient tolerated the procedure well and was taken to the recovery room in good condition. Drains No Packing No Pathology none sent Complications No immediate complications Condition stable Disposition PACU
== END 2021-11-19 10:02 | disposition home or self-care (01) ==
PROVIDERS: PCP Physician Assistant; Visit Provider Urology
PROC: (CPT 50590; principal; 2021-11-19 07:30)
DX: N20.0 Calculus of kidney (principal); N32.81 Overactive bladder; N93.9 Abnormal uterine and vaginal bleeding, unspecified; R35.0 Frequency of micturition; M19.90 Unspecified osteoarthritis, unspecified site; G47.30 Sleep apnea, unspecified; J45.909 Unspecified asthma, uncomplicated; Z79.51 Long term (current) use of inhaled steroids; I67.1 Cerebral aneurysm, nonruptured; Z85.9 Personal history of malignant neoplasm, unspecified; Z87.891 Personal history of nicotine dependence
CPT/HCPCS: 50590; 36415; 74018; 81001; 85610; 85730; C1769; J0690; J1100; J2250; J2405; J2704; J3010; J7120

== ENCOUNTER 2022-02-21 12:38 | Outpatient (CLI) | payer MEDICARE, MEDICAID, SELFPAY ==
--- NOTE | ~2022-02-21 | CT_ITS ---
EXAMINATION:CT lung screening DATE: 02/21/2022 15:00 INDICATION: Tobacco dependence. Smoker who quit 7 years ago with 60 pack year history. TECHNIQUE: Computed tomography (CT) of the chest was performed without intravenous contrast. Automate d exposure control and iterative reconstruction technique were employed. The dose-length product (DLP ) was 440.98 mGy-cm. COMPARISON: CT abdomen and pelvis 04/02/2021 FINDINGS: There is chronic mild elevation of right hemidiaphragm. There is mild atelectasis bilateral ly. No pleural effusion. The heart size is normal. No pericardial effusion. There is ectasia of ascen ding aorta measuring 4.5 cm. There are 2 stones in right kidney measuring up to 5 mm. There are 3 sto wil in left kidney measuring up to 5 mm. There is mild thoracic spondylosis. IMPRESSION: 1. Lung-RADS category 1: Negative. Continue annual screening with noncontrast low-dose chest CT in 12 months. Reviewed, dictated and finalized at location A. IMPRESSION: 1. Lung-RADS category 1: Negative. Continue annual screening with noncontrast l ow-dose chest CT in 12 months.
--- NOTE | ~2022-02-21 | MM_ITS ---
EXAMINATION: MM diagnostic conor BI w luis HISTORY: History of prior left breast cancer, 2006 TECHNIQUE: Bilateral full field ML, MLO and CC and bilateral spot ML and CC 3-D tomosynthesis images were performed and synthetic 2-D images were generated. CAD analysis was submitted and interpreted. COMPARISON: 10/28/2015 bilateral screening mammogram BREAST PARENCHYMAL COMPOSITION: The breasts are almost entirely fatty. FINDINGS: Occasional bilateral benign appearing circumscribed opacities likely due to benign intramam leandro lymph nodes. No suspicious mass, architectural distortion, malignant calcification, skin thicken ing or retraction or significant new or developing density of either breast is noted. Biopsy marker in the upper outer left breast. IMPRESSION: 1. No mammographic evidence of malignancy 2. Routine mammographic screening is recommended BI-RADS Category 2: Benign finding(s). Reviewed, dictated and finalized at location A.
== END 2022-02-21 12:39 | disposition home or self-care (01) ==
LOC: ANHIMG 12:42
PROVIDERS: PCP Physician Assistant; Visit Provider Physician Assistant
DX: Z12.2 Encounter for screening for malignant neoplasm of respiratory organs (principal); Z85.3 Personal history of malignant neoplasm of breast; R92.2 Inconclusive mammogram; Z87.891 Personal history of nicotine dependence
CPT/HCPCS: 71271; 77062; 77066; G0279

== ENCOUNTER 2022-03-14 13:22 | Outpatient (CLI) | payer MEDICARE, MEDICAID, SELFPAY ==
--- NOTE | ~2022-03-14 | XR_ITS ---
EXAMINATION: XR abdomen/kub 1V INDICATION: Bilateral kidney stones TECHNIQUE: Supine views of the abdomen were obtained on 2 radiographs. COMPARISON: 11/19/2021 FINDINGS: Bowel contents project over the kidneys limiting sensitivity for renal stones. There appear to be three or four clustered stones of the left kidney measuring 2 mm each. There also appear to be stones measuring 4 mm and 5 mm in the lower pole of the right kidney. No definite stones are identif ied along the expected courses of the ureters or within the urinary bladder. There are phleboliths of the pelvis. The bowel gas pattern is normal. There is moderate osteoarthritis of the hips. IMPRESSION: 1. Likely bilateral nephrolithiasis. Reviewed, dictated and finalized at location A.
== END 2022-03-14 13:23 | disposition home or self-care (01) ==
PROVIDERS: PCP Physician Assistant; Visit Provider Urology
DX: N20.0 Calculus of kidney (principal)
CPT/HCPCS: 74018

== ENCOUNTER 2022-07-10 19:45 | Emergency (ER) | payer MEDICARE, MEDICAID, SELFPAY ==
--- NOTE | ~2022-07-10 | XR_ITS ---
EXAM: XR hand RT min 3V DATE: 07/10/2022 20:02 HISTORY: pain base rt thumb s/p fall 5 days ago . COMPARISON: 01/16/2019. FINDINGS: Normal mineralization. No fracture or dislocation. No lytic or blastic lesion. Scattered m ild degenerative changes. No erosion or periosteal change. Soft tissues within normal limits. IMPRESSION: No acute osseous finding in the right hand. Reviewed, dictated and finalized at location K.
[2022-07-10 19:54] VITALS: BP 136/100; PULSE 95; RESP 16; TEMP 37.6; O2SAT 98
--- NOTE | 2022-07-10 20:03 | ED.UPPEXIN ---
HPI - Extremity Injury (Upper) General Chief Complaint: Extremity Injury, Upper Stated Complaint: tim hand pain Source: patient Mode of arrival: ambulatory Limitations: no limitations History of Present Illness HPI narrative: 56-year-old female presents to [facility] with complaints of pain to the base of her right thumb radiating to her right wrist for the past 5 days. Patient reports that the symptoms started after she had a seizure and fell 5 days ago in her home. Patient reports that she has a history of a seizure disorder since 2010. Patient reports that she has been taking [id number] Aleve and takes prescribed tramadol for chronic pain. Patient reports that she has bruising to the dorsal aspect of her left hand but denies pain to her left hand. Patient denies swelling, bruising or erythema to her right hand. MD complaint: injury to: right Onset (ago): day(s) (5) Handedness: right Place: home Context: fall Associated symptoms: denies other symptoms Related Data Home Medications Medication Instructions Recorded Confirmed albuterol sulfate 90 mcg/actuation 2 inh inhalation Q4H PRN shortness 02/09/21 07/10/22 aerosol inhaler (Ventolin HFA) of breath or wheezing cholecalciferol (vitamin D3) 50 50 mcg PO DAILY 02/09/21 07/10/22 mcg (2,000 unit) capsule citalopram 20 mg tablet 20 mg PO DAILY 02/09/21 07/10/22 cyanocobalamin (vitamin B-12) 1,000 mcg PO DAILY 02/09/21 07/10/22 1,000 mcg capsule topiramate 200 mg tablet 200 mg PO BID 02/09/21 07/10/22 fluticasone 100 mcg-salmeterol 50 1 inh inhalation BID 09/28/21 07/10/22 mcg/dose blistr powdr for inhalation (Wixela Inhub) lamotrigine 100 mg tablet 100 mg PO DAILY 09/28/21 07/10/22 oxybutynin chloride 10 mg 10 mg PO HS 09/28/21 07/10/22 tablet,extended release 24 hr trazodone 50 mg tablet 50 mg PO HS 09/28/21 07/10/22 atorvastatin 20 mg tablet 20 mg PO DAILY 07/10/22 07/10/22 metoprolol tartrate 25 mg tablet 25 mg PO DAILY 07/10/22 07/10/22 mirabegron 25 mg tablet,extended 25 mg PO DAILY 07/10/22 07/10/22 release 24 hr (Myrbetriq) Allergies Allergy/AdvReac Type Severity Reaction Status Date / Time Sulfa (Sulfonamide Allergy Severe Swelling Verified 07/10/22 19:57 Antibiotics) codeine Allergy Intermediate Hives Verified 07/10/22 19:57 Review of Systems Constitutional: Constitutional: Denies chills, Denies fatigue, Denies fever(s) and Denies weakness ENT: Denies dizziness Respiratory: Respiratory: Denies cough, Denies dyspnea and Denies wheezing Gastrointestinal: Gastrointestinal: Denies abdominal pain, Denies diarrhea, Denies nausea and Denies vomiting Musculoskeletal: Comments: Pain to base of right thumb moving into right wrist Integumentary/Breasts: Skin/Breast: Denies rash Neurologic: Denies dizziness and Denies headache(s) Endocrine: Endocrine: Denies fatigue PMFSH Past Medical History Medical History Anxiety Arthritis Asthma Brain aneurysm Cancer H/O migraine Seizure Ventral hernia Surgical History Surgical History H/O lumpectomy H/O: hysterectomy Hx of craniotomy Family History Family History Father Family history of lung cancer Family history of primary malignant neoplasm of liver Heart problem Asthma Mother Family history of sleep apnea Family history of type 2 diabetes mellitus Hypertension Heart problem Depression with anxiety Sibling Diabetes mellitus Hypertension Depression with anxiety Heart problem Thyroid disorder Cerebrovascular accident Kidney failure Social History Social History Smoking packs per day: 2 Smoking cigarettes per day: 40.0 Years smoked: 35 Smoking pack-years: 70.00 Smoking status: Former smoker Tobacco type: cigarettes and e-cig
[2022-07-10 20:14] VITALS: BP 118/78
== END 2022-07-10 20:21 | disposition home or self-care (01) ==
PROVIDERS: Emergency Provider Nurse Practitioner Family
DX: M25.531 Pain in right wrist (principal); F17.200 Nicotine dependence, unspecified, uncomplicated; M19.90 Unspecified osteoarthritis, unspecified site; J45.909 Unspecified asthma, uncomplicated; F41.9 Anxiety disorder, unspecified; G40.909 Epilepsy, unspecified, not intractable, without status epilepticus; Z85.9 Personal history of malignant neoplasm, unspecified
CPT/HCPCS: 73130; 99213; G0463

== ENCOUNTER → 2022-08-15 08:56 | Outpatient (CLI) | payer MEDICARE, MEDICAID, SELFPAY ==
--- NOTE | ~2022-08-15 | XR_ITS ---
EXAMINATION: XR hand RT min 3V DATE: 08/15/2022 09:24 INDICATION: Right hand pain. Fall. TECHNIQUE: 3 views of right hand were obtained. COMPARISON: Right knee radiographs 07/10/2022 FINDINGS: Bone is normal. No fracture. There is mild osteoarthritis of first carpometacarpal joint, s econd metacarpophalangeal joint, and some of the interphalangeal joints. IMPRESSION: 1. Mild polyarticular osteoarthritis. Reviewed, dictated and finalized at location B.
--- NOTE | ~2022-08-15 | XR_ITS ---
EXAMINATION: XR wrist RT min 3V DATE: 08/15/2022 09:24 INDICATION: Right wrist pain. Fall. TECHNIQUE: 4 views of right wrist were obtained. COMPARISON: None. FINDINGS: Bone alignment is normal. No fracture. There is mild osteoarthritis of first carpometacarpa l joint. IMPRESSION: 1. Mild osteoarthritis of first carpometacarpal joint. Reviewed, dictated and finalized at location B.
== END ==
PROVIDERS: PCP Emergency Medicine; Visit Provider Emergency Medicine
DX: M19.031 Primary osteoarthritis, right wrist (principal); M19.041 Primary osteoarthritis, right hand
CPT/HCPCS: 73110; 73130

== ENCOUNTER 2022-09-26 11:33 | Outpatient (CLI) | payer MEDICARE, MEDICAID, SELFPAY ==
--- NOTE | ~2022-09-26 | XR_ITS ---
XR_CERV2-3V_CR DATE: 09/26/2022 12:35 INDICATION: Neck pain TECHNIQUE: AP, open-mouth, lateral and swimmer views COMPARISON: 05/06/2021 cervical spine FINDINGS: C1 and C2 are normally aligned and the odontoid process is intact. No fracture or dislocati on or locked facet or prevertebral soft tissue swelling. There is minimal anterolisthesis at C4-5. Mild degenerative disc disease at C4-5 and C5-6. Degenerative change at the apophyseal joints, especially on the left at C3-4 and C4-5. Small bilateral cervical ribs. IMPRESSION: Mild cervical spondylosis Small bilateral cervical ribs Reviewed, dictated and finalized at Location A. 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
--- NOTE | ~2022-09-26 | XR_ITS ---
EXAMINATION: XR lumbar spine min 4V DATE: 09/26/2022 12:35 INDICATION: Low back pain TECHNIQUE: Anteroposterior, lateral, and bilateral oblique views of the lumbar spine, and cone-down l ateral view of the lumbosacral junction were obtained. COMPARISON: 05/06/2021 FINDINGS: There are bilateral L5 pars defects with chronic grade 1 anterolisthesis of L5 on S1. Bone alignment is otherwise normal. The vertebral body heights are maintained. There is mild loss of inter vertebral disc space height at L5-S1. Left nephrolithiasis is noted. There is multilevel mild facet j oint osteoarthritis. IMPRESSION: 1. Mild lumbar spondylosis. 2. Chronic bilateral L5 pars defects with stable grade 1 anterolisthesis of L5 on S1. 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
--- NOTE | ~2022-09-26 | XR_ITS ---
EXAMINATION: XR hip RT min 2V DATE: 09/26/2022 12:35 INDICATION: Back pain TECHNIQUE: Two views of right hip were obtained. COMPARISON: 05/06/2021 FINDINGS: Bone alignment is normal. There is no fracture. There is mild osteoarthritis of the hip. Os teitis pubis is noted. IMPRESSION: 1. Mild osteoarthritis of the hip. 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
== END 2022-09-26 11:34 | disposition home or self-care (01) ==
PROVIDERS: PCP Emergency Medicine
DX: M47.896 Other spondylosis, lumbar region (principal); M16.11 Unilateral primary osteoarthritis, right hip; M47.892 Other spondylosis, cervical region
CPT/HCPCS: 72040; 72110; 73502

== ENCOUNTER 2023-01-18 10:18 | Outpatient (CLI) | payer MEDICARE, MEDICAID, SELFPAY ==
[2023-01-18 11:16] LABS: SARS-CoV-2 RNA PCR Positive
== END 2023-01-18 10:19 | disposition home or self-care (01) ==
LOC: ANHLAB 10:20
PROVIDERS: PCP Emergency Medicine; Visit Provider Emergency Medicine
DX: U07.1 COVID-19 (principal)
CPT/HCPCS: U0003; U0005

== ENCOUNTER 2023-03-13 14:12 | Outpatient (CLI) | payer MEDICARE, MEDICAID, SELFPAY ==
[2023-03-13 14:24] LABS: Basophils Percent Auto 0.7 % (0.2-1.2); Eosinophils Absolute Auto 0.1 K/mm3 (0-0.3); Hematocrit 37.9 % (37.0-47.0); Hemoglobin 12.8 g/dL (12.0-15.0); Immature Granulocyte Absolute 0.02 K/mm3 (0.00-0.031); Immature Granulocyte Percent A 0.3 % (0-0.5); Lymphocytes Absolute Auto 2.12 K/mm3 (0.9-3.2); Lymphocytes Percent Auto 35.6 % (18.3-44.2); Mean Corpuscular HGB Conc 33.8 g/dl (32-36); Mean Corpuscular Hemoglobin 30.3 pg (26-34); Mean Corpuscular Volume 89.8 fl (80-100); Mean Platelet Volume 8.9 fl (7.4-10.4); Monocytes Absolute Auto 0.4 K/mm3 (0.1-0.6); Monocytes Percent Auto 6.7 % (2.6-8.5); Neutrophils Absolute Auto 3.3 K/mm3 (1.3-6.7); Neutrophils Percent Auto 55.7 % (45.5-73.1); Platelet Count Result 239 k/mm3 (150-375); Red Blood Count 4.22 M/mm3 (4.2-5.4); Red Cell Distribution Width 12.6 % (11.5-14.5)
[2023-03-13 14:33] LABS: Blood Urea Nitrogen 14 mg/dL (8-26); Carbon Dioxide 23 mmol/L (22-30); Chloride 107 mmol/L (98-109); Estimated Glomerular Filt Rate 57; Glucose 94 mg/dL (70-105); Ionized Calcium (POC) 1.27 mmol/L (1.11-1.31); Potassium 3.7 mmol/L (3.5-4.9); Sodium 141 mmol/L (138-146)
[2023-03-13 16:41] LABS: Alanine Aminotransferase 17 U/L (6-35); Albumin Level 4.5 g/dL (3.5-5.1); Alkaline Phosphatase 59 U/L (38-126); Anion Gap 10 mmol/L (8-16); Aspartate Amino Transferase 23 U/L (14-36); Bilirubin,Total 0.5 mg/dL (0.2-1.3); Blood Urea Nitrogen 14 mg/dL (7-17); Calcium 9.3 mg/dL (8.4-10.2); Carbon Dioxide 22 mmol/L (22-30); Chloride 108 mmol/L (98-107); Estimated Glomerular Filt Rate 57; Glucose 90 mg/dL (65-110); Potassium 3.7 mmol/L (3.4-5.0); Sodium 140 mmol/L (137-145)
[2023-03-17 05:20] LABS: CA 15-3 7 U/mL (<32)
== END 2023-03-13 14:13 | disposition home or self-care (01) ==
LOC: ANHLAB 14:14
PROVIDERS: PCP Emergency Medicine; Visit Provider Internal Medicine Hematology & Oncology
DX: C50.912 Malignant neoplasm of unspecified site of left female breast (principal); Z85.43 Personal history of malignant neoplasm of ovary
CPT/HCPCS: 36415; 80047; 80053; 85025; 86300

== ENCOUNTER 2023-04-19 14:12 | Outpatient (CLI) | payer MEDICARE, MEDICAID, SELFPAY ==
--- NOTE | ~2023-04-19 | XR_ITS ---
XR shoulder LT min 2V DATE: 04/19/2023 14:42 INDICATION: Left shoulder pain TECHNIQUE: 4 views COMPARISON: 05/06/2021 left shoulder FINDINGS: Normal alignment at the acromioclavicular and glenohumeral joints. No fracture, dislocation , periosteal reaction or bone destruction of the left shoulder. No abnormal soft tissue calcification of the left shoulder. IMPRESSION: No significant abnormality Reviewed, dictated and finalized at location [] IMPRESSION: No significant abnormality
== END 2023-04-19 14:13 | disposition home or self-care (01) ==
PROVIDERS: PCP Emergency Medicine; Visit Provider Pain Medicine Pain Medicine
DX: M25.512 Pain in left shoulder (principal)
CPT/HCPCS: 73030

== ENCOUNTER 2023-05-10 14:25 | Outpatient (CLI) | payer MEDICARE, MEDICAID, SELFPAY ==
--- NOTE | ~2023-05-10 | MM_ITS ---
EXAMINATION: MM screening conor BI w luis HISTORY: Screening mammogram TECHNIQUE: Craniocaudal and mediolateral oblique 3-D tomosynthesis images were obtained and synthetic 2-D images were generated. CAD analysis was submitted and interpreted. COMPARISON: February 21, 2022 diagnostic bilateral mammogram BREAST PARENCHYMAL COMPOSITION: The breasts are almost entirely fatty. FINDINGS: Biopsy marker on the left. History of prior partial mastectomy for breast malignancy in 200 3. There is no evidence of suspicious mass, calcification, or architectural distortion to suggest mal ignancy in either breast. There has been no suspicious interval change. IMPRESSION: 1. No mammographic evidence of malignancy. 2. Recommend routine screening mammography in one year. BI-RADS Category 2: Benign finding(s). Reviewed, dictated and finalized at location A.
== END 2023-05-10 14:26 | disposition home or self-care (01) ==
LOC: ANHIMG 14:28
PROVIDERS: PCP Emergency Medicine; Visit Provider Internal Medicine Hematology & Oncology
DX: Z12.31 Encounter for screening mammogram for malignant neoplasm of breast (principal)
CPT/HCPCS: 77063; 77067

== ENCOUNTER 2023-06-16 09:27 | Outpatient (CLI) | payer MEDICARE, MEDICAID, SELFPAY ==
[2023-06-16 09:58] LABS: Basophils Percent Auto 0.8 % (0.2-1.2); Eosinophils Absolute Auto 0.1 K/mm3 (0-0.3); Eosinophils Percent Auto 1.8 % (0-4.4); Hematocrit 36.8 % (37.0-47.0); Hemoglobin 12.2 g/dL (12.0-15.0); Immature Granulocyte Absolute 0.01 K/mm3 (0.00-0.031); Immature Granulocyte Percent A 0.2 % (0-0.5); Lymphocytes Absolute Auto 1.53 K/mm3 (0.9-3.2); Lymphocytes Percent Auto 30.1 % (18.3-44.2); Mean Corpuscular HGB Conc 33.2 g/dl (32-36); Mean Corpuscular Hemoglobin 30.3 pg (26-34); Mean Corpuscular Volume 91.5 fl (80-100); Mean Platelet Volume 8.9 fl (7.4-10.4); Monocytes Absolute Auto 0.2 K/mm3 (0.1-0.6); Monocytes Percent Auto 4.7 % (2.6-8.5); Neutrophils Absolute Auto 3.2 K/mm3 (1.3-6.7); Neutrophils Percent Auto 62.4 % (45.5-73.1); Platelet Count Result 235 k/mm3 (150-375); Red Blood Count 4.02 M/mm3 (4.2-5.4); Red Cell Distribution Width 12.6 % (11.5-14.5); White Blood Count 5.1 K/mm3 (4.5-10.0)
[2023-06-16 12:27] LABS: Alanine Aminotransferase 17 U/L (6-35); Albumin Level 4.1 g/dL (3.5-5.1); Alkaline Phosphatase 68 U/L (38-126); Anion Gap 6 mmol/L (8-16); Aspartate Amino Transferase 24 U/L (14-36); Bilirubin,Total 0.5 mg/dL (0.2-1.3); Blood Urea Nitrogen 22 mg/dL (7-17); Carbon Dioxide 23 mmol/L (22-30); Chloride 109 mmol/L (98-107); Estimated Glomerular Filt Rate 51; Glucose 106 mg/dL (65-110); Potassium 3.8 mmol/L (3.4-5.0); Sodium 138 mmol/L (137-145)
[2023-06-20 05:20] LABS: CA-125 10 U/mL (<35)
[2023-06-22 08:24] LABS: CA 15-3 7 U/mL (<32)
== END 2023-06-16 09:28 | disposition home or self-care (01) ==
LOC: ANHLAB 09:32
PROVIDERS: PCP Emergency Medicine; Visit Provider Internal Medicine Hematology & Oncology
DX: C50.912 Malignant neoplasm of unspecified site of left female breast (principal); Z85.43 Personal history of malignant neoplasm of ovary
CPT/HCPCS: 36415; 80053; 85025; 86300; 86304

== ENCOUNTER 2023-09-21 16:33 | Outpatient (CLI) | payer MEDICARE, MEDICAID, SELFPAY ==
--- NOTE | ~2023-09-21 | MR_ITS ---
EXAMINATION: MR cervical spine wo con DATE: 09/21/2023 17:15 INDICATION: Neck pain. TECHNIQUE: Magnetic resonance imaging (MRI) of the cervical spine was performed without intravenous c ontrast. COMPARISON: None FINDINGS: There is mild kyphosis of cervical spine. Vertebral body heights are normal. There is mildl y decreased disc height at C4-C5 and moderately decreased disc height at C5-C6. The spinal cord signa l intensity is normal. The following disc levels are specifically discussed: C2-C3: The disc does not extend beyond the endplate margin. There is no uncovertebral joint osteoarth ritis. There is severe bilateral facet joint osteoarthritis. There is mild left neural foraminal sten osis. There is no central canal stenosis. C3-C4: The disc does not extend beyond the endplate margin. There is mild bilateral uncovertebral shabbir nt osteoarthritis. There is moderate right and severe left facet joint osteoarthritis. There is mild left neural foraminal stenosis. There is no central canal stenosis. C4-C5: The disc is bulging. There is mild bilateral uncovertebral joint osteoarthritis. There is mild right and moderate left facet joint osteoarthritis. There is mild bilateral neural foraminal stenosi s. There is mild central canal stenosis. C5-C6: The disc is bulging. There is severe right and moderate left uncovertebral joint osteoarthriti s. There is moderate right and mild left facet joint osteoarthritis. There is severe right and mild l eft neural foraminal stenosis. There is mild central canal stenosis with ventral indentation of the s sandi cord. C6-C7: There is a right central extrusion. There is no uncovertebral joint osteoarthritis. There is n o facet joint osteoarthritis. There is no neural foraminal stenosis. There is mild central canal sten osis. C7-T1: The disc does not extend beyond the endplate margin. There is no uncovertebral joint osteoarth ritis. There is mild left facet joint osteoarthritis. There is no neural foraminal stenosis. There is no central canal stenosis. IMPRESSION: 1. Moderate cervical spondylosis. Of note, there is severe right neural foraminal stenosis at C5-C6. Reviewed, dictated and finalized at location E. ATION OFFICER IMPRESSION: 1. Moderate cervical spondylosis. Of note, there is severe right neural foramin al stenosis at C5-C6.
== END 2023-09-21 16:34 | disposition home or self-care (01) ==
PROVIDERS: PCP Emergency Medicine; Visit Provider Pain Medicine Pain Medicine
DX: M47.892 Other spondylosis, cervical region (principal)
CPT/HCPCS: 72141